=== PATIENT | male | born 1980 | race Hispanic/Latino ===

== ENCOUNTER 2017-05-25 09:34 | Emergency (ER) | payer OTHER ==
[~2017-05-25] VITALS: Ht 165.1 cm; Wt 75.0 kg
[2017-05-25] MEDS ORDERED: MOTRIN800 MG PO (10:18)
[2017-05-25 10:50] VITALS: BP 133/76
== END 2017-05-25 10:50 | disposition home or self-care (01) | DRG 563 ==
LOC: ED 09:34
PROC: 2W3LX1Z Immobilization of Right Lower Extremity using Splint (ICD-10-PCS; principal; 2017-05-25)
DX: S93.401A Sprain of unspecified ligament of right ankle, initial encounter (principal); E11.9 Type 2 diabetes mellitus without complications; F17.210 Nicotine dependence, cigarettes, uncomplicated; M79.5 Residual foreign body in soft tissue; X50.1XXA Overexertion from prolonged static or awkward postures, initial encounter; Y93.89 Activity, other specified; Y92.89 Other specified places as the place of occurrence of the external cause; Y99.0 Civilian activity done for income or pay

== ENCOUNTER 2017-09-09 05:13 | Emergency (ER) | payer SELFPAY ==
[~2017-09-09] VITALS: Ht 165.1 cm; Wt 63.0 kg
[~2017-09-09 05:13] MED LIST: MOTRIN800 MG PO
[2017-09-09] MEDS ORDERED: AMOXICILLIN500 MG PO (06:24)
[2017-09-09] MEDS ORDERED: PERCOCET 5/325M1 TAB PO (06:24)
[2017-09-09 07:06] VITALS: BP 120/79
== END 2017-09-09 07:07 | disposition home or self-care (01) | DRG 153 ==
LOC: ED 05:13
DX: H66.92 Otitis media, unspecified, left ear (principal); H92.02 Otalgia, left ear; E11.9 Type 2 diabetes mellitus without complications; F17.210 Nicotine dependence, cigarettes, uncomplicated